=== PATIENT | female | born 1995 | race Two or more races ===

== ENCOUNTER 2024-08-28 20:55 | Emergency (ER) | payer OTHER ==
[~2024-08-28] VITALS: Ht 172.7 cm; Wt 76.2 kg
[2024-08-28] MEDS ORDERED: ACETAMINOPHEN 500 MG TABLET ONE (21:48)
[2024-08-28] MEDS ORDERED: IBUPROFEN 400 MG TABLET ONE (21:48)
[2024-08-28] MEDS: ACETAMINOPHEN 500 MG TABLET PO ONE (22:10)
[2024-08-28] MEDS: IBUPROFEN 400 MG TABLET PO ONE (22:10)
[2024-08-28 23:30] VITALS: BP 112/83; TEMP 97.8; O2SAT 98
== END 2024-08-28 23:30 | disposition home or self-care (01) ==
LOC: ER 20:55
DX: S06.0XAA Concussion with loss of consciousness status unknown, initial encounter (principal); V89.2XXA Person injured in unspecified motor-vehicle accident, traffic, initial encounter; Y93.89 Activity, other specified; Y92.410 Unspecified street and highway as the place of occurrence of the external cause; Y99.8 Other external cause status
CPT/HCPCS: 73020; A4606; A4663; A9150